=== PATIENT | female | born 1980 | race Caucasian/White ===

== ENCOUNTER 2020-10-05 08:55 | Outpatient (CLI) | payer SELFPAY ==
[2020-10-05 19:05] LABS: COVID-19 RT-PCR UVMMC Result Negative (Negative)
== END 2020-10-05 08:56 | disposition home or self-care (01) ==
PROVIDERS: Visit Provider Nurse Practitioner Family
DX: Z20.822 Contact with and (suspected) exposure to COVID-19 (principal)
CPT/HCPCS: U0003